=== PATIENT | male | born 1965 | race Caucasian/White ===

== ENCOUNTER → 2023-07-06 | Outpatient (CLI) | payer OTHER ==
[~2023-07-06] MED LIST: AMLO5 PO; LISI20 PO
[2023-07-06 10:46] LABS: Anion Gap 4 mmol/L (6-16); Blood Urea Nitrogen 14 mg/dL (8-24); Bun/Creatinine Ratio 17.8 (12.0-20.0); CHOL/HDL RATIO 3.3; CO2, Blood 26 mmol/L (21-32); Calcium, Blood 9.2 mg/dL (8.5-10.1); Chloride, Blood 105 mmol/L (98-108); Cholesterol 273 mg/dL (50-200); Creatinine, Blood 0.79 mg/dL (0.60-1.20); Glomerular Filtration Rate 103 (60-); Glucose, Blood 112 mg/dL (70-99); HDL Cholesterol 83 mg/dL (>39); Low Density Lipoprotein Chol 166 mg/dL (0-110); Potassium, Blood 4.2 mmol/L (3.5-5.5); Sodium, Blood 135 mmol/L (136-145); Triglycerides 121 mg/dL (30-160); Very Low Density Lipoprot Chol 24 mg/dL (6-32)
== END ==
LOC: LAB SHORT 09:25 → LAB 09:25
PROVIDERS: Physician Assistant
DX: Z13.220 Encounter for screening for lipoid disorders (principal); I10 Essential (primary) hypertension
CPT/HCPCS: 80048; 80061